=== PATIENT | female | born 1975 | race African-American/Black ===

== ENCOUNTER 2017-03-10 18:55 | Emergency (ER) | payer MEDICAID ==
[~2017-03-10] VITALS: Ht 162.6 cm; Wt 50.0 kg
[~2017-03-10 18:55] MED LIST: ALBUTEROL
[2017-03-10] MEDS ORDERED: KETOROLAC 30MG/ML VIAL IV ONE (23:00)
[2017-03-10 23:03] LABS: BASOPHILS % 0.3 % (0.0-2.0); EOSINOPHILS % 2.2 % (0.0-5.0); HEMATOCRIT. 39.8 % (36.0-48.0); HEMOGLOBIN. 12.9 g/dL (12.0-16.0); LYMPHOCYTES % 45.7 % (20.0-50.0); MEAN CORPUSCULAR HEMOGLOBIN 30.3 pg (28.0-32.0); MEAN CORPUSCULAR VOLUME 93.4 fL (81.0-99.0); MEAN PLATELET VOLUME 9.9 fl (7.4-10.4); MONOCYTES % 9.9 % (2.0-8.0); NEUTROPHILS % 41.9 % (40.0-76.0); PLATELET 172 x1000/uL (130-400); RED BLOOD CELL COUNT 4.26 mill/uL (4.2-5.4); RED CELL DISTRIBUTION WIDTH 14.7 % (11.6-14.6)
[2017-03-10 23:17] LABS: CARBON DIOXIDE 27 mEq/L (21-32); CHLORIDE 112 mEq/L (98-107); ETHANOL BLOOD 294 mg/dL; HCG SCREEN NEGATIVE
[2017-03-11 03:37] VITALS: BP 108/78
== END 2017-03-11 03:46 | disposition home or self-care (01) ==
LOC: ER 19:36
DX: S00.83XA Contusion of other part of head, initial encounter (principal); F10.129 Alcohol abuse with intoxication, unspecified; J45.909 Unspecified asthma, uncomplicated; X58.XXXA Exposure to other specified factors, initial encounter; Y93.89 Activity, other specified; Y99.8 Other external cause status; Y92.89 Other specified places as the place of occurrence of the external cause
CPT/HCPCS: 36415; 70450; 70486; 80053; 84703; 85025; 96374; 99285; G0482; J1885